=== PATIENT | male | born 1985 ===

== ENCOUNTER 2016-12-25 22:06 | Inpatient (IN) | payer BC ==
[2016-12-25 23:06] LABS: ABG ALLEN TEST YES; ARTERIAL BLOOD GAS HCO3 21.1 mmol/L (21-28); ARTERIAL BLOOD GAS MODE ROOM AIR; ARTERIAL BLOOD GAS PH 7.37 (7.35-7.45); ARTERIAL BLOOD GAS PO2 71 mm/Hg (80-100)
[2016-12-25 23:25] LABS: BASO % 0.1 % (0.0-2.0); EOS % 0.1 % (0.0-4.0); HEMATOCRIT 31.3 % (35.0-51.0); LYMPH # 1.4 K/uL (1.0-4.3); MEAN CORPUSCULAR HEMOGLOBIN 31.5 pg (27.0-31.0); MEAN CORPUSCULAR HGB CONC 32.5 g/dL (33.0-37.0); MEAN PLATELET VOLUME 8.4 fl (7.2-11.7); MONO # 0.9 K/uL (0.0-0.8); MONO % 9.9 % (0.0-10.0); NEUT % 74.9 % (50.0-75.0); NRBC % 0.1 % (0.0-0.0); RED CELL DISTRIBUTION WIDTH 14.9 % (11.5-14.5); WHITE BLOOD COUNT 9.3 K/uL (4.8-10.8)
[2016-12-25] MEDS ORDERED: Piperacillin/Tazobact 3.375 GM in Sodium Chloride 0.9% 100 ML IVPB STA (23:28)
--- NOTE | 2016-12-25 23:33 | ED PDOC ---
HPI: SOB/CHF/COPD Time Seen by Provider: 12/25/16 22:22 Chief Complaint (Nursing): Shortness Of Breath Chief Complaint (Provider): Right leg swelling/SOB History Per: Patient History/Exam Limitations: no limitations Onset/Duration Of Symptoms: Days (2) Current Symptoms Are (Timing): Still Present Additional Complaint(s): Newton Biggs is a 31 y/o male, with a past medical history of Atrial- Fibrillation, HIV (positive; viral load undetectable), hypertension, hypothyroidism, and gastritis, presenting to the ER with right leg swelling x2 days. Patient reports swelling has exacerbated since onset and is associated with erythema localized to the inferior area of the leg. Describes the sensation as "burning". Patient notes that his leg swelling is generally persistent but today has been worse than usual, prompting a visit to the ED. Reports associated symptoms include SOB (worse upon exertion), malaise, fatigue , subjective fever, and chills. Denies any trauma to the inflicted area. PMD- Matti Welch Past Medical History Reviewed: Historical Data, Nursing Documentation, Vital Signs Vital Signs: Last Vital Signs Temp 98.2 F 12/26/16 12:20 Pulse 89 12/26/16 12:20 Resp 18 12/26/16 12:20 BP 99/61 L 12/26/16 12:20 Pulse Ox 97 12/26/16 12:20 - Medical History PMH: CAD, Cardia Arrhythmia, HIV (2005. viral load undetectable. does not know CD4 count. compliant with meds), HTN, Hypercholesterolemia, Hypothyroidism - Surgical History Surgical History: Pacemaker Other surgeries: heart transplant in 2007 for severe A-fib and heart failure - Family History Family History: States: Hypertension (father) - Social History Current smoker - smoking cessation education provided: No Alcohol: None Drugs: Denies - Immunization History Hx Influenza Vaccination: Yes (11/07/15) Hx Pneumococcal Vaccination: Yes (11/07/15) - Home Medications Home Medications: Ambulatory Orders Medication Instructions Recorded Atorvastatin [Lipitor] 20 mg PO HS 07/29/14 Furosemide [Lasix] 40 mg PO DAILY 07/29/14 Lansoprazole 30 mg PO DAILY 07/29/14 Levothyroxine [Synthroid] 0.0375 mg PO DAILY 07/29/14 Tacrolimus [Prograf] 1 mg PO BID 07/29/14 predniSONE 5 mg PO DAILY 07/29/14 Allopurinol [Zyloprim] 200 mg PO DAILY 11/15/15 Carvedilol [Coreg] 25 mg PO BID 11/15/15 Dolutegravir Sodium [Tivicay] 50 mg PO DAILY 11/15/15 Lamivudine [Epivir] 300 mg PO DAILY 11/15/15 Mycophenolate Mofetil [Cellcept] 1,000 mg PO BID 11/15/15 Rilpivirine HCl [Edurant] 25 mg PO DAILY 11/15/15 Sulfamethoxazole/Trimethoprim 1 mg PO MWF 11/15/15 [Bactrim DS Tab] - Allergies Allergies/Adverse Reactions: Allergies Allergy/AdvReac Type Severity Reaction Status Date / Time ibuprofen Allergy RASH Verified 11/14/15 23:21 Review of Systems ROS Statement: Except As Marked, All Systems Reviewed And Found Negative Constitutional: Positive for: Fever (subjective ), Chills, Malaise, Other ( fatigue ) Respiratory: Positive for: SOB with Exertion Musculoskeletal: Positive for: Other (leg swelling ) Physical Exam - Reviewed Nursing Documentation Reviewed: Yes Vital Signs Reviewed: Yes - Physical Exam Appears: Positive for: Non-toxic, In Acute Distress (mild) Head Exam: Positive for: ATRAUMATIC, NORMOCEPHALIC Skin: Positive for: Normal Color, Warm (febrile), Dry Eye Exam: Positive for: Normal appearance, EOMI, PERRL ENT: Positive for: Normal ENT Inspection, Pharynx Is (clear), TM Is/Are (normal ), Other (moist mucuous membranes ). Negative for: Pharyngeal Erythema, Tonsillar Exudate, Tonsillar Swelling Neck: Positive for: Normal (no signs of meningismus ), Painless ROM, Supple Cardiovascular/Chest: Positive for: Tachycardia (w/ regular rhythm ) Respiratory: Positive for: Normal Breath Sounds. Negative for: Wheezing, Respiratory Distress Gastrointestinal/Abdominal: Positive for: Normal Exam, Soft. Negative for: Tenderness, Mass, Distended, Guarding, Rebound Extremity: Positive for: Normal ROM, Swelling (bilat lower leg pitting edema, right side greather than left), Other (Right side is erythematous and warm with induration from the ankle extending prison up the lower leg with mild TTP, ). Negative for: Deformity Lymphatic: Positive for: Normal Exam. Negative for: Adenopathy (non-palpable lymphadenopathy ) Neurologic/Psych: Positive for: Alert, Oriented (x3). Negative for: Motor/ Sensory Deficits - Laboratory Results Result Diagrams: 12/26/16 06:52 12/26/16 06:52 - ECG ECG Rhythm: Positive for: Sinus Tachycardia (@ 122), Right Bundle Branch Block Interpretation Of Abn EKG: low voltage QRS. O2 Sat by Pulse Oximetry: 99 (RA) Pulse Ox Interpretation: Normal Medical Decision Making Medical Decision Makin:22 Initial Impression- Right lower leg cellulitis and edema. Differential dx includes but not limited to Sepsis, CHF, DVT, PE. Initial Plan- * CAT Angio * EKG * BNP * CMP * Lactic Acid * Magnesium * Phosphorus * Troponin * PT * PTT * CXR * Acetaminophen 975 mg PO * Blood Cx * Urine Cx * Urinalysis * US Duplex * Re-assess Documented by Chastity Garcia, acting as a scribe for Kaylen Campbell MD. All medical record entries made by the Scribe were at my direction and personally dictated by me. I have reviewed the chart and agree that the record accurately reflects my personal performance of the history, physical exam, medical decision making, and the department course for this patient. I have also personally directed, reviewed, and agree with the discharge instructions and disposition. Disposition - Clinical Impression Clinical Impression: Dyspnea - Disposition Disposition: Transfer of Care Disposition Time: 00:00 Condition: STABLE Patient Signed Over To: Dayton Nelson Handoff Comments: P'ing ER workup, reassessment and final ER disposition
[2016-12-25 23:41] LABS: ALKALINE PHOSPHATASE 81 U/L (38-126); ALT/SGPT 32 U/L (21-72); AST/SGOT 24 U/L (17-59); BILIRUBIN,TOTAL 0.7 mg/dl (0.2-1.3); BLOOD UREA NITROGEN 26 mg/dl (9-20); CALCIUM 8.4 mg/dL (8.4-10.2); CARBON DIOXIDE 22 mmol/L (22-30); CHLORIDE 108 mmol/L (98-107); GFR AFRICAN-AMERICAN > 60; GLUCOSE,RANDOM 101 mg/dL (75-110); MAGNESIUM 1.6 MG/DL (1.6-2.3); PHOSPHOROUS 2.5 mg/dl (2.5-4.5); SODIUM 140 mmol/l (132-148); TOTAL PROTEIN 7.1 G/DL (6.3-8.2)
[2016-12-25 23:44] LABS: PARTIAL THROMBOPLASTIN TIME 29.5 SECONDS (23.3-32.5)
[2016-12-25 23:52] LABS: POTASSIUM 5.2 MMOL/L (3.6-5.0)
[2016-12-26] MEDS ORDERED: Sodium Chloride 0.9% 50 ML IV ONE (00:15)
[2016-12-26] MEDS ORDERED: Iodixanol 320 MG/ML 100 ML BOTTLE IV ONE (00:15)
--- NOTE | 2016-12-26 00:31 | ED PDOC ---
- Laboratory Results Result Diagrams: 12/28/16 05:40 12/28/16 05:40 - ECG O2 Sat by Pulse Oximetry: 99 (RA) Medical Decision Making Medical Decision Makin:00 Pt signed out to me by Dr. Adrian MD. Pending Ultrasound and CT. 01:38 US DUPLEX LOWER FINDINGS: Deep veins: Unremarkable. No DVT in the common femoral, femoral or popliteal veins. Superficial veins: Unremarkable. No thrombus in the visualized greater saphenous vein. Soft tissues: No acute findings. No popliteal cyst. IMPRESSION: Normal right lower extremity duplex venous ultrasound. Pt will be placed under observation for CHF. Case d/w Dr Greene Documented by Chastity Garcia, acting as a scribe for Dayton Nelson MD. All medical record entries made by the Scribe were at my direction and personally dictated by me. I have reviewed the chart and agree that the record accurately reflects my personal performance of the history, physical exam, medical decision making, and the department course for this patient. I have also personally directed, reviewed, and agree with the discharge instructions and disposition. Disposition - Clinical Impression Clinical Impression: Dyspnea - POA Present On Arrival: None - Disposition Disposition: Routine/Home Disposition Time: 01:45 Condition: STABLE
[2016-12-26 01:03] LABS: RBC URINE 2 /hpf (0-3); URINE BILIRUBIN NEGATIVE (NEGATIVE); URINE BLOOD SMALL (NEGATIVE); URINE COLOR YELLOW (YELLOW); URINE GLUCOSE (UA) NEG (Normal); URINE KETONE NEGATIVE (NEGATIVE); URINE LEUKOCYTE ESTERASE NEG Leu/uL (Negative); URINE PROTEIN NEGATIVE (NEGATIVE); URINE UROBILINOGEN 0.2-1.0 mg/dL (0.2-1.0); WBC URINE < 1 /hpf (0-5)
--- NOTE | 2016-12-26 01:37 | US ---
EXAM: US Duplex Right Lower Extremity Veins. CLINICAL HISTORY: 31 years old, male; Signs and symptoms; Swelling of limb; Lower extremity, right; Additional info: Rll swelling and cellulitis TECHNIQUE: Real-time ultrasound scan of the veins of the right lower extremity with color Doppler flow, spectral waveform analysis and compression. COMPARISON: No relevant prior studies available. FINDINGS: Deep veins: Unremarkable. No DVT in the common femoral, femoral or popliteal veins. Superficial veins: Unremarkable. No thrombus in the visualized greater saphenous vein. Soft tissues: No acute findings. No popliteal cyst. IMPRESSION: Normal right lower extremity duplex venous ultrasound.
[2016-12-26] MEDS ORDERED: Piperacillin/Tazobact 3.375 gm Inj IVPB ONE (02:27)
--- NOTE | 2016-12-26 02:38 | CP.PCM.HP ---
Addendum entered and electronically signed by Jam Greene MD 12/26/16 03:06: eCw chart reviewed. Original Note: History of Present Illness - History of Present Illness History of Present Illness: 31 yo morbidly obese male w/ PMHx of Afib (s/p cardiac transplant), HIV + (CD4 638 [08/2016]; viral load undetectable [03/2016]), HTN, hypothyroidism, presented to the ER with right leg swelling/pain x2 days. Patient states swelling has gotten worse since onset and is associated with erythema localized to the inferior area of the leg. Describes the sensation as "burning" from ankle to proximal portion of calf. Patient states leg swelling is generally persistent but today has been worse than usual, which prompted ED visit. Reports associated symptoms include SOB (worse upon exertion), malaise, and subjective fever. Denies any trauma to the area, headache, palpitations, chest pain, abdominal pain, changes in urinary/bowel habits, n/v. No history of similar symptoms in the past. Patient states works all day on feet. Patient compliant with medications. PMD: Dr. Welch PMHx: Afib (that was uncontrolled and unable to be ablated requiring heart transplant), HIV + (CD4 638 [08/2016]; viral load undetectable [03/2016]), HTN, hypothyroidism, and gastritis Allergies: Ibuprofen and other NSAIDs Meds: As per chart Surgeries: Heart Transplant 2002 Family hx: Father alive with HTN, Mother alive with osteoporosis Social hx: Works at [employer]. Denies tobacco or drug use. Social EtOh consumption ED Course: Vitals notable for fever at 100.9, tachycardia Labs: Notable for Hgb 10.2, WBC 9.3, Plt 113, K 5.2, Lactate negative, Pro BNP 2040 EKG: see scanned report though no acute changes Imaging: CTA negative for acute PE. US negative for DVT on RLE Present on Admission - Present on Admission Any Indicators Present on Admission: No Review of Systems - Review of Systems All systems: reviewed and no additional remarkable complaints except (mentioned in HPI) Past Patient History - Infectious Disease Hx of Infectious Diseases: None - Past Social History Alcohol: None Drugs: Denies - CARDIAC Hx Cardia Arrhythmia: Yes Hx Hypercholesterolemia: Yes Hx Hypertension: Yes Hx Pacemaker: Yes - ENDOCRINE/METABOLIC Hx Hypothyroidism: Yes - HEMATOLOGICAL/ONCOLOGICAL Hx Human Immunodeficiency Virus (HIV): Yes (2005. viral load undetectable. does not know CD4 count. compliant with meds) - PSYCHIATRIC Hx Substance Use: No - SURGICAL HISTORY Hx Surgeries: Yes Hx Open Heart Surgery: Yes (HEART TRANSPLANT 06/2003) - ANESTHESIA Hx Anesthesia: Yes Hx Anesthesia Reactions: No Meds Allergies/Adverse Reactions: Allergies Allergy/AdvReac Type Severity Reaction Status Date / Time ibuprofen Allergy RASH Verified 11/14/15 23:21 Physical Exam - Constitutional Appears: Well, Non-toxic, No Acute Distress Additional comments: morbidly obese - Head Exam Head Exam: ATRAUMATIC, NORMAL INSPECTION, NORMOCEPHALIC - Eye Exam Eye Exam: EOMI, Normal appearance - ENT Exam ENT Exam: Normal Exam - Neck Exam Neck exam: Positive for: Normal Inspection - Respiratory Exam Respiratory Exam: Clear to Auscultation Bilateral, Rales (scant bibasilar rales appreciated), NORMAL BREATHING PATTERN - Cardiovascular Exam Cardiovascular Exam: REGULAR RHYTHM, RRR, +S1, +S2 - GI/Abdominal Exam GI & Abdominal Exam: Normal Bowel Sounds, Soft. absent: Distended, Firm, Tenderness - Extremities Exam Extremities exam: Positive for: pedal pulses present (bilaterally) Additional comments: B/L lower leg pitting edema, R>L Neurovascular intact bilaterally RLE: Erythema, warmth with induration from ankle extending fci up the lower leg with tenderness to palpation - Back Exam Back exam: NORMAL INSPECTION - Neurological Exam Neurological exam: Alert, Oriented x3 - Psychiatric Exam Psychiatric exam: Normal Affect, Normal Mood - Skin Skin Exam: Dry, Intact, Normal Color, Warm Results - Vital Signs Recent Vital Signs: Last Vital Signs Temp 100.9 F H 12/25/16 22:15 Pulse 107 H 12/25/16 22:15 Resp 22 12/25/16 22:15 BP 123/64 12/25/16 22:15 Pulse Ox 99 12/26/16 01:40 - Labs Result Diagrams: 12/25/16 23:21 12/25/16 23:21 Assessment & Plan (1) Cellulitis Status: Acute (2) Cardiomyopathy Status: Acute (3) History of heart transplant Status: Chronic (4) HIV (human immunodeficiency virus infection) Status: Chronic (5) Hypothyroid Status: Chronic (6) Morbid obesity Status: Chronic (7) HTN (hypertension) Status: Acute (8) DVT prophylaxis Status: Acute - Assessment and Plan (Free Text) Assessment: 31 yo morbidly obese male w/ PMHx of Afib (s/p cardiac transplant), HIV + (CD4 638 [08/2016]; viral load undetectable [03/2016]), HTN, hypothyroidism, with right leg swelling/pain x2 days with associated SOB. Found to be in acute heart failure and likely cellulitis of right lower leg. Plan: (1) Cellulitis - Burning pain/warmth/erythema/fever noted - WBC normal though with HIV infection, may not be able to mount leukocytosis - US negative for thrombosis - DDx includes cellulitis vs statis dermatitis - Will treat with Ancef 1g q8h at this time - Follow up blood cx - Monitor for improvement/resolution of symptoms - Monitor vitals (2) Cardiomyopathy - SOB with bilateral leg swelling and elevated probnp - CTA negative for PE - Last Echo 02/23/2016, valvular disease noted with preserved EF - Will obtain repeat echo at this time, follow up results - Lasix 20mg IV x 1 - continue home meds (lasix 40mg PO BID) (3) History of heart transplant - continue home meds (prednisone 5mg daily, Bactrim DS MWF, Prograd 1mg BID) (4) HIV (human immunodeficiency virus infection) - CD4 638 [08/2016]; viral load undetectable [03/2016] - continue home meds (edurant, epivir, tivicay) (5) Hypothyroid - TSH ordered for AM - continue home meds (synthroid 25mcg) (6) Morbid obesity - HgbA1c, Lipid panel ordered for AM follow up (7) HTN - Stable - Continue home meds (Coreg 25mg BID, Lipitor 20mg) (8) DVT prophylaxis - Lovenox 40mg SC daily, notable for mild thrombocytopenia though not necessarily related to heparin products, continue to monitor and adjust accordingly.
[2016-12-26] MEDS: ceFAZolin 1 GM in Sodium Chloride 0.9% 100 ML IVPB SCH ×3 (06:09→17:36)
[2016-12-26 07:01] LABS: BASO % 0.3 % (0.0-2.0); EOS % 0.2 % (0.0-4.0); HEMATOCRIT 29.8 % (35.0-51.0); LYMPH # 1.9 K/uL (1.0-4.3); LYMPH % 17.8 % (20.0-40.0); MEAN CELL VOLUME 97.5 fl (80.0-94.0); MEAN CORPUSCULAR HEMOGLOBIN 31.4 pg (27.0-31.0); MEAN CORPUSCULAR HGB CONC 32.2 g/dL (33.0-37.0); MEAN PLATELET VOLUME 9.4 fl (7.2-11.7); MONO # 1.3 K/uL (0.0-0.8); MONO % 11.7 % (0.0-10.0); NEUT # 7.5 K/uL (1.8-7.0); WHITE BLOOD COUNT 10.7 K/uL (4.8-10.8)
[2016-12-26 07:21] LABS: BLOOD UREA NITROGEN 23 mg/dl (9-20); CALCIUM 8.2 mg/dL (8.4-10.2); CARBON DIOXIDE 19 mmol/L (22-30); CHLORIDE 107 mmol/L (98-107); CHOLESTEROL 102 mg/dL (0-199); GFR AFRICAN-AMERICAN > 60; GLUCOSE,RANDOM 93 mg/dL (75-110); POTASSIUM 4.6 MMOL/L (3.6-5.0); SODIUM 137 mmol/l (132-148)
[2016-12-26] MEDS ORDERED: PREDNISONE 5 MG PO SCH (09:00)
[2016-12-26] MEDS: Levothyroxine 25 MCG TAB PO SCH (10:00)
[2016-12-26] MEDS: Enoxaparin 40 mg Syringe SC SCH (10:00)
--- NOTE | 2016-12-26 11:00 | CT ---
PROCEDURE: CT Chest with contrast (Pulmonary Angiogram) HISTORY: sob, reported prior heart surgery. COMPARISON: None available. TECHNIQUE: Axial computed tomography images were obtained of the chest in the pulmonary arterial phase of enhancement. Coronal and sagittal reformatted images were created and reviewed. Intravenous contrast dose: 100 cc Visipaque 320 Radiation dose: Total exam DLP = 409.54 mGy-cm. FINDINGS: PULMONARY ARTERIES: Limited evaluation of the peripheral pulmonary arteries due to patient's body habitus and poor contrast bolus injection. No evidence of central pulmonary embolus. The main pulmonary artery is mildly to moderately enlarged. AORTA: No acute findings. No thoracic aortic aneurysm. LUNGS: Unremarkable. No nodule, mass or pulmonary consolidation. PLEURAL SPACES: Unremarkable. No effusion or pneuomothorax. HEART: The heart is moderately enlarged. There is a single wire seen extending to the right ventricle. LYMPH NODES: No lymphadenopathy. BONES, CHEST WALL: Post sternotomy changes are seen. OTHER FINDINGS: Unremarkable. IMPRESSION: Limited study. No evidence of central pulmonary embolus. Cardiomegaly. Mildly to moderately enlarged main pulmonary artery suggestive of underlying pulmonary hypertension. No evidence of pleural effusion or pneumothorax. No evidence of acute pulmonary disease. Preliminary report was submitted by [facility].
--- NOTE | 2016-12-26 13:26 | RAD ---
HISTORY: Sepsis Patient COMPARISON: Comparison is made to the previous study dated 09/22/2014 FINDINGS: LUNGS: Prominent lung markings and small opacities especially at the lower lobes are noted. Otherwise no significant interval change in the lungs. PLEURA: No significant pleural effusion identified, no pneumothorax apparent. CARDIOVASCULAR: Cardiomegaly is seen. Left-sided single wire pacemaker or AICD is seen in place. OSSEOUS STRUCTURES: No significant abnormalities. VISUALIZED UPPER ABDOMEN: Normal. OTHER FINDINGS: None. IMPRESSION: Prominent lung markings and small opacities at the lower lobes. Correlate for pulmonary vascular congestion. Cardiomegaly.
[2016-12-26] MEDS ORDERED: Pneumococcal 23-Valent Vaccine IM ONE (14:00)
--- NOTE | 2016-12-26 14:01 | CARD ---
APPROVED REPORT EKG Measurement Heart [id number] <Conclusion> Sinus tachycardia with 1st degree AV block with occasional premature ventricular complexes Low voltage QRS Right bundle branch block Septal infarct, age undetermined Abnormal ECG
[2016-12-27] MEDS: ceFAZolin 1 GM in Sodium Chloride 0.9% 100 ML IVPB SCH ×3 (02:23→17:30)
[2016-12-27] MEDS: Levothyroxine 25 MCG TAB PO SCH (05:59)
--- NOTE | 2016-12-27 08:07 | CP.PCM.PN ---
Subjective - Date & Time of Evaluation Date of Evaluation: 12/27/16 Time of Evaluation: 09:21 - Subjective Subjective: 31 year old male with PMHx of Afib (s/p cardiac transplant), HIV + (CD4 638 [2015]; viral load undetectable [03/2016]), HTN, hypothyroidism, morbid obesity was seen at bedside regarding right lower extremity swelling. Patient denies any acute events overnight. His right lower extremity is still red, and swollen , and he states that it is still painful to the touch. He denies any n/v/f/c/ sob/cp. Objective - Vital Signs/Intake and Output Vital Signs (last 24 hours): Temp Pulse Resp BP Pulse Ox 97.3 F L 90 18 114/73 98 12/27/16 04:57 12/27/16 04:57 12/27/16 04:57 12/27/16 04:57 12/27/16 04:57 - Medications Medications: Current Medications Acetaminophen (Tylenol 325mg Tab) 975 mg PO ONCE PRN PRN Reason: Fever >100.4 F Acetaminophen (Tylenol 325mg Tab) 650 mg PO Q6 PRN PRN Reason: Fever >100.4 F Atorvastatin Calcium (Lipitor) 20 mg PO HS [facility] Last Admin: 12/26/16 21:04 Dose: 20 mg Carvedilol (Coreg) 25 mg PO BID [facility] Last Admin: 12/26/16 16:28 Dose: 25 mg Enoxaparin Sodium (Lovenox) 40 mg SC DAILY [facility] PRN Reason: Protocol Last Admin: 12/26/16 10:00 Dose: 40 mg Furosemide (Lasix) 40 mg PO BID [facility] Last Admin: 12/26/16 16:29 Dose: 40 mg Home Med (Rilpivirine Hcl [Edurant]) 25 mg PO DAILY [facility] Home Med (Patient's Own Medication) 1 unit PO DAILY [facility] Cefazolin Sodium 1 gm/ Sodium (Chloride) 100 mls @ 100 mls/hr IVPB Q8H [facility] Last Admin: 12/27/16 02:23 Dose: 100 mls/hr Lamivudine (Epivir) 300 mg PO DAILY [facility] Levothyroxine Sodium (Synthroid) 25 mcg PO DAILY@0630 [facility] Last Admin: 12/27/16 05:59 Dose: 25 mcg Mycophenolate Mofetil (Cellcept) 1,000 mg PO BID [facility] Last Admin: 12/26/16 21:59 Dose: 1,000 mg Prednisone (Prednisone Tab) 5 mg PO DAILY [facility] Last Admin: 12/26/16 10:00 Dose: Not Given Tacrolimus (Prograf Cap) 1 mg PO BID [facility] Last Admin: 12/26/16 16:29 Dose: 1 mg Trimethoprim/Sulfamethoxazole (Bactrim Ds Tab) 1 tab PO MWF [facility] - Labs Labs: PT 12.0 SECONDS (9.6-11.2) H 12/25/16 23:21 INR 1.15 (0.92-1.08) H 12/25/16 23:21 APTT 29.5 SECONDS (23.3-32.5) 12/25/16 23:21 - Constitutional Appears: Non-toxic, No Acute Distress - Head Exam Head Exam: NORMAL INSPECTION - Eye Exam Eye Exam: EOMI, Normal appearance - Neck Exam Neck Exam: Normal Inspection - Respiratory Exam Respiratory Exam: Clear to Ausculation Bilateral, NORMAL BREATHING PATTERN - Cardiovascular Exam Cardiovascular Exam: REGULAR RHYTHM, +S1, +S2 - GI/Abdominal Exam GI & Abdominal Exam: Soft, Normal Bowel Sounds. absent: Tenderness - Extremities Exam Extremities Exam: Calf Tenderness Additional comments: BL lower extremity edema R>L, with slight increase in temperature, non- blanchable erythema from the medial malleolus proximal to the midcalf, tenderness on compression of calf to the right, no tenderness on calf compression left. DP pulses palpable BL - Back Exam Back Exam: NORMAL INSPECTION - Neurological Exam Neurological Exam: Alert, Awake, Oriented x3 - Psychiatric Exam Psychiatric exam: Normal Affect, Normal Mood - Skin Skin Exam: Intact Assessment and Plan - Assessment and Plan (Free Text) Assessment: 31 yo morbidly obese male w/ PMHx of Afib (s/p cardiac transplant), HIV + (CD4 638 [08/2016]; viral load undetectable [03/2016]), HTN, hypothyroidism, with right leg swelling/pain x2 days with associated SOB. Found to be in acute heart failure and likely cellulitis of right lower leg. Plan: (1) Cellulitis vs DVT - Burning pain/warmth/erythema - Afebrile - WBC normal (10.7) though with HIV infection, may not be able to mount leukocytosis - US negative for thrombosis 12/25/16 - DDx includes cellulitis vs statis dermatitis vs DVT - Will treat with Ancef 1g q8h at this time - Blood cultures 12/25/16- no growth - Monitor for improvement/resolution of symptoms - Monitor vitals - Therapeutic Lovenox 180 mg SC - D-dimer 0.32 (2) Cardiomyopathy - SOB with bilateral leg swelling and elevated probnp - CTA negative for PE - Last Echo 02/23/2016, valvular disease noted with preserved EF - Echo:EF 65-70%, mitral regurgitation is trace to mild, there is trace to mild tricuspid regurgitation - Lasix 20mg IV x 1 - continue home meds (lasix 40mg PO BID) (3) History of heart transplant - continue home meds (prednisone 5mg daily, Bactrim DS MWF, Prograd 1mg BID) (4) HIV (human immunodeficiency virus infection) - CD4 638 [08/2016]; viral load undetectable [03/2016] - continue home meds (edurant, epivir, tivicay) (5) Hypothyroid - TSH ordered for AM - continue home meds (synthroid 25mcg) (6) Morbid obesity - HgbA1c, Lipid panel ordered for AM follow up (7) HTN - Stable - Continue home meds (Coreg 25mg BID, Lipitor 20mg)
[2016-12-27] MEDS: Tmp-Smz 800 mg-160 mg DS Tab PO SCH (08:55)
[2016-12-27] MEDS: Enoxaparin 40 mg Syringe SC SCH (08:58)
[2016-12-27] MEDS: DOLUTEGRAVIR 50 MG PO SCH (08:58)
[2016-12-27] MEDS ORDERED: Enoxaparin 120 mg Syringe SC SCH (10:15)
[2016-12-27] MEDS ORDERED: Enoxaparin 100 mg Syringe SC SCH (10:45)
--- NOTE | 2016-12-27 11:09 | CARD ---
APPROVED REPORT EXAM: Two-dimensional and M-mode echocardiogram with Doppler and color Doppler. Other Information Quality : AverageRhythm : Pacemaker INDICATION Congestive Heart Failure S/P Heart Transplant 2D DIMENSIONS IVSd0.90 (0.7-1.1cm)LVDd5.46 (3.9-5.9cm) PWd0.99 (0.7-1.1cm)IVSs1.32 (0.8-1.2cm) LVDs3.93 (2.5-4.0cm)FS (%) 28.1 % PWs1.07 (0.8-1.2cm) M-Mode DIMENSIONS Left Atrium (MM)8.92 (2.5-4.0cm)IVSd1.01 (0.7-1.1cm) Aortic Root3.04 (2.2-3.7cm)LVDd5.75 (4.0-5.6cm) Aortic Cusp Exc.1.90 (1.5-2.0cm)PWd1.10 (0.7-1.1cm) IVSs1.78 cmFS (%) 48 % LVDs3.00 (2.0-3.8cm)PWs1.52 cm Mitral Valve E/A ratio0.0 TDI E/Lateral E'0.0E/Medial E'0.0 Pulmonary Valve PV Peak Gasgmmmw483.9cm/s Tricuspid Valve TR Peak [id number] [id number] Peak Gr.25mmHg [id number] LEFT VENTRICLE The left ventricle is normal size. There is normal left ventricular wall thickness. The left ventricular function is normal. The left ventricular ejection fraction is within the normal range. The Ejection Fraction is 65-70%. There is normal LV segmental wall motion. The left ventricular diastolic function is normal. No left ventricle thrombus noted on this study. RIGHT VENTRICLE The right ventricle is normal size. There is normal right ventricular wall thickness. The right ventricular systolic function is normal. ATRIA The left atrium size is normal. The right atrium size is normal. The interatrial septum is intact with no evidence for an atrial septal defect. AORTIC VALVE The aortic valve is normal in structure and function. No aortic regurgitation is present. There is no aortic valvular stenosis. There is no aortic valvular vegetation. MITRAL VALVE The mitral valve is normal in structure and function. There is no evidence of mitral valve prolapse. There is no mitral valve stenosis. Mitral regurgitation is trace to mild. TRICUSPID VALVE The tricuspid valve is normal in structure and function. There is trace to mild tricuspid regurgitation. There is no tricuspid valve prolapse or vegetation. There is no tricuspid valve stenosis. PULMONIC VALVE The pulmonary valve is normal in structure and function. There is no pulmonic valvular regurgitation. There is no pulmonic valvular stenosis. GREAT VESSELS The aortic root is normal in size. The IVC is normal in size and collapses >50% with inspiration. PERICARDIAL EFFUSION The pericardium appears normal. There is no pleural effusion. <Conclusion> The left ventricle is normal size. The left ventricular function is normal. The left ventricular ejection fraction is within the normal range. The Ejection Fraction is 65-70%. Mitral regurgitation is trace to mild. There is trace to mild tricuspid regurgitation.
--- NOTE | 2016-12-27 13:53 | CP.PCM.CON ---
History of Present Illness - History of Present Illness History of Present Illness: 31 yo morbidly obese male with right leg swelling/pain x2 days. Patient states swelling has gotten worse since onset and is associated with erythema localized to the inferior area of the leg. Describes the sensation as "burning" from ankle to proximal portion of calf. Patient states leg swelling is generally persistent but today has been worse than usual, which prompted ED visit. Reports associated symptoms include SOB (worse upon exertion), malaise, and subjective fever. Denies any trauma to the area, headache, palpitations, chest pain, abdominal pain, changes in urinary/bowel habits, n/v. No history of similar symptoms in the past. Patient states works all day on feet. Patient compliant with medications. PMHx of Afib (s/p cardiac transplant), HIV + (CD4 638 [08/2016]; viral load undetectable [03/2016]), HTN, hypothyroidism, presented to the ER PMD: Dr. Welch PMHx: Afib (that was uncontrolled and unable to be ablated requiring heart transplant), HIV + (CD4 638 [08/2016]; viral load undetectable [03/2016]), HTN, hypothyroidism, and gastritis Allergies: Ibuprofen and other NSAIDs Meds: As per chart Surgeries: Heart Transplant 2003 Family hx: Father alive with HTN, Mother alive with osteoporosis Social hx: Works at [employer]. Denies tobacco or drug use. Social EtOh consumption Review of Systems - Constitutional Constitutional: As Per HPI - EENT Eyes: absent: As Per HPI, Blind Spots, Blurred Vision, Change in Vision, Decreased Night Vision, Diplopia, Discharge, Dry Eye, Exophthalmos, Floaters, Irritation, Itchy Eyes, Loss of Peripheral Vision, Pain, Photophobia, Requires Corrective Lenses, Sees Flashes, Spots in Vision, Tunnel Vision, Other Visual Disturbances, Loss of Vision, Other Ears: absent: As Per HPI, Decreased Hearing, Ear Discharge, Ear Pain, Tinnitus, Abnormal Hearing, Disequilibrium, Dizziness, Other Nose/Mouth/Throat: absent: As Per HPI, Epistaxis, Nasal Congestion, Nasal Discharge, Nasal Obstruction, Nasal Trauma, Nose Pain, Post Nasal Drip, Sinus Pain, Sinus Pressure, Bleeding Gums, Change in Voice, Dental Pain, Dry Mouth, Dysphagia, Halitosis, Hoarsness, Lip Swelling, Mouth Lesions, Mouth Pain, Odynophagia, Sore Throat, Throat Swelling, Tongue Swelling, Facial Pain, Neck Pain, Neck Mass, Other - Cardiovascular Cardiovascular: As Per HPI - Respiratory Respiratory: As Per HPI, Dyspnea, Dyspnea on Exertion - Gastrointestinal Gastrointestinal: absent: As Per HPI, Abdominal Pain, Belching, Bloating, Change in Bowel Habits, Change in Stool Character, Coffee Ground Emesis, Constipation, Cramping, Diarrhea, Dyspepsia, Dysphagia, Early Satiety, Excessive Flatus, Fecal Incontinence, Heartburn, Hematemesis, Hematochezia, Loose Stools, Melena, Nausea, Odynophagia, Temesmus, Vomiting, Other - Genitourinary Genitourinary: absent: As Per HPI, Change in Urinary Stream, Difficulty Urinating, Dysuria, Flank Pain, Hematuria, Pyuria, Nocturia, Urinary Incontinence, Urinary Frequency, Urinary Hesitance, Urinary Urgency, Voiding Freq/Small Amts, Freq UTI, Hx Renal/Bladder Calculi, Hx /Renal Surgery, Bladder Distension, Other - Musculoskeletal Musculoskeletal: As Per HPI - Integumentary Integumentary: As Per HPI - Neurological Neurological: absent: As Per HPI, Abnormal Gait, Abnormal Hearing, Abnormal Movements, Abnormal Speech, Behavioral Changes, Burning Sensations, Confusion, Convulsions, Disequilibrium, Dizziness, Numbness, Focal Weakness, Frequent Falls , Headaches, Lack of Coordination, Loss of Vision, Memory Loss, Paresthesias, Radicular Pain, Restless Legs, Sensory Deficit, Syncope, Tingling, Tremor, Vertigo, Weakness, Other Visual Disturbances, Other - Psychiatric Psychiatric: absent: As Per HPI, Abnormal Sleep Pattern, Anhedonia, Anxiety, Auditory Hallucinations, Behavioral Changes, Change in Appetite, Change in Libido, Confusion, Depression, Difficulty Concentrating, Hallucinations, Homicidal Ideation, Hopelessness, Irritability, Memory Loss, Mood Swings, Panic Attacks, Paranoia, Suicidal Ideation, Visual Hallucinations, Tactile Hallucinations, Other - Endocrine Endocrine: absent: As Per HPI, Change in Body Appearance, Change in Libido, Cold Intolorance, Deepening of Voice, Excessive Sweating, Fatigue, Flushing, Heat Intolorance, Increase in Ring/Shoe/Hat Size, Palpitations, Polydipsia, Polyphagia, Polyuria, Other - Hematologic/Lymphatic Hematologic: absent: As Per HPI, Easy Bleeding, Easy Bruising, Lymphadenopathy, Other Past Patient History - Infectious Disease Hx of Infectious Diseases: None - Past Social History Alcohol: None Drugs: Denies - CARDIAC Hx Cardia Arrhythmia: Yes Hx Hypercholesterolemia: Yes Hx Hypertension: Yes Hx Pacemaker: Yes - PULMONARY Hx Respiratory Disorders: No - NEUROLOGICAL Hx Neurological Disorder: No - HEENT Hx HEENT Problems: No - RENAL Hx Chronic Kidney Disease: No - ENDOCRINE/METABOLIC Hx Hypothyroidism: Yes - HEMATOLOGICAL/ONCOLOGICAL Hx Human Immunodeficiency Virus (HIV): Yes (2005. viral load undetectable. does not know CD4 count. compliant with meds) - INTEGUMENTARY Hx Dermatological Problems: No - MUSCULOSKELETAL/RHEUMATOLOGICAL Hx Falls: No Hx Gout: Yes Hx Unsteady Gait: Yes - GASTROINTESTINAL Hx Ulcer: Yes (gastric ulcers) - PSYCHIATRIC Hx Psychophysiologic Disorder: No Hx Substance Use: No - SURGICAL HISTORY Hx Surgeries: Yes Hx Open Heart Surgery: Yes (HEART TRANSPLANT 06/2003) Other/Comment: pacemaker in 2009 and heart transplant in 2002 - ANESTHESIA Hx Anesthesia: Yes Hx Anesthesia Reactions: No Hx Malignant Hyperthermia: No Has any member of the family had a problem w/ anesthesia?: No Meds Allergies/Adverse Reactions: Allergies Allergy/AdvReac Type Severity Reaction Status Date / Time ibuprofen Allergy RASH Verified 11/14/15 23:21 - Medications Medications: Current Medications Acetaminophen (Tylenol 325mg Tab) 975 mg PO ONCE PRN PRN Reason: Fever >100.4 F Acetaminophen (Tylenol 325mg Tab) 650 mg PO Q6 PRN PRN Reason: Fever >100.4 F Atorvastatin Calcium (Lipitor) 20 mg PO HS [facility] Last Admin: 12/26/16 21:04 Dose: 20 mg Carvedilol (Coreg) 25 mg PO BID [facility] Last Admin: 12/27/16 08:55 Dose: 25 mg Enoxaparin Sodium (Lovenox) 180 mg SC STAT [facility]ENDAL PRN Reason: Protocol Furosemide (Lasix) 40 mg PO BID [facility] Last Admin: 12/27/16 08:56 Dose: 40 mg Home Med (Rilpivirine Hcl [Edurant]) 25 mg PO DAILY [facility] Last Admin: 12/27/16 08:54 Dose: 25 mg Home Med (Patient's Own Medication) 1 unit PO DAILY [facility] Last Admin: 12/27/16 08:58 Dose: 1 unit Cefazolin Sodium 1 gm/ Sodium (Chloride) 100 mls @ 100 mls/hr IVPB Q8H [facility] Last Admin: 12/27/16 10:00 Dose: 100 mls/hr Lamivudine (Epivir) 300 mg PO DAILY [facility] Last Admin: 12/27/16 09:02 Dose: 300 mg Levothyroxine Sodium (Synthroid) 25 mcg PO DAILY@0630 [facility] Last Admin: 12/27/16 05:59 Dose: 25 mcg Mycophenolate Mofetil (Cellcept) 1,000 mg PO BID [facility] Last Admin: 12/27/16 08:55 Dose: 1,000 mg Prednisone (Prednisone Tab) 5 mg PO DAILY [facility] Last Admin: 12/27/16 08:56 Dose: 5 mg Tacrolimus (Prograf Cap) 1 mg PO BID [facility] Last Admin: 12/27/16 08:56 Dose: 1 mg Trimethoprim/Sulfamethoxazole (Bactrim Ds Tab) 1 tab PO MWF [facility] Last Admin: 12/27/16 08:55 Dose: 1 tab Physical Exam - Constitutional Appears: Non-toxic, Chronically Ill - Head Exam Head Exam: NORMOCEPHALIC - Eye Exam Eye Exam: PERRL. absent: Scleral icterus - ENT Exam ENT Exam: Mucous Membranes Dry, Normal External Ear Exam - Neck Exam Neck exam: Negative for: Lymphadenopathy, Thyromegaly - Respiratory Exam Respiratory Exam: Decreased Breath Sounds, Rales, Rhonchi - Cardiovascular Exam Cardiovascular Exam: Tachycardia, REGULAR RHYTHM, +S1, +S2 - GI/Abdominal Exam GI & Abdominal Exam: Diminished Bowel Sounds, Distended, Soft. absent: Guarding , Organomegaly, Rebound, Rigid - Rectal Exam Rectal Exam: Deferred - Exam Exam: NORMAL INSPECTION - Extremities Exam Extremities exam: Positive for: pedal edema, tenderness, pedal pulses present. Negative for: calf tenderness - Back Exam Back exam: absent: CVA tenderness (L), CVA tenderness (R) - Neurological Exam Neurological exam: Alert, CN II-XII Intact, Oriented x3, Reflexes Normal Additional comments: bilat leg swelling/ redness - Psychiatric Exam Psychiatric exam: Normal Mood - Skin Skin Exam: Dry Results - Vital Signs Recent Vital Signs: Last Vital Signs Temp 98.2 F 12/27/16 12:02 Pulse 81 12/27/16 12:02 Resp 18 12/27/16 12:02 BP 105/72 12/27/16 12:02 Pulse Ox 96 12/27/16 12:02 - Labs Result Diagrams: 12/26/16 06:52 12/26/16 06:52 Labs: Laboratory Results - last 24 hr 12/27/16 11:40 D-Dimer, Quantitative 0.32 Assessment & Plan (1) Cardiomyopathy Status: Acute (2) Cellulitis Status: Acute (3) DVT prophylaxis Status: Acute (4) HTN (hypertension) Status: Acute (5) HIV (human immunodeficiency virus infection) Status: Chronic (6) History of heart transplant Status: Chronic (7) Hypothyroid Status: Chronic - Assessment and Plan (Free Text) Assessment: afebrile with neg cultures thus far if no improvement consider adding coverage for MRSA
[2016-12-27] MEDS ORDERED: Enoxaparin 30 mg Syringe SC ONE (20:30)
[2016-12-27] MEDS ORDERED: Enoxaparin 150 mg Syringe SC ONE (21:00)
[2016-12-28] MEDS: ceFAZolin 1 GM in Sodium Chloride 0.9% 100 ML IVPB SCH ×3 (01:34→17:37)
[2016-12-28] MEDS: Levothyroxine 25 MCG TAB PO SCH (05:43)
[2016-12-28 07:28] LABS: BLOOD UREA NITROGEN 23 mg/dl (9-20); CALCIUM 8.5 mg/dL (8.4-10.2); CARBON DIOXIDE 22 mmol/L (22-30); CHLORIDE 106 mmol/L (98-107); GFR AFRICAN-AMERICAN > 60; GLUCOSE,RANDOM 84 mg/dL (75-110); POTASSIUM 4.4 MMOL/L (3.6-5.0); SODIUM 139 mmol/l (132-148)
[2016-12-28 07:48] LABS: MEAN CELL VOLUME 97.7 fl (80.0-94.0); MEAN CORPUSCULAR HEMOGLOBIN 31.8 pg (27.0-31.0); MEAN CORPUSCULAR HGB CONC 32.5 g/dL (33.0-37.0); RED CELL DISTRIBUTION WIDTH 15.2 % (11.5-14.5); WHITE BLOOD COUNT 5.4 K/uL (4.8-10.8)
[2016-12-28] MEDS: Enoxaparin 100 mg Syringe SC SCH ×2 (08:42→21:37)
[2016-12-28] MEDS: DOLUTEGRAVIR 50 MG PO SCH (08:48)
--- NOTE | 2016-12-28 10:19 | CP.PCM.PN ---
Subjective - Date & Time of Evaluation Date of Evaluation: 12/28/16 Time of Evaluation: 10:19 - Subjective Subjective: 31 year old male with PMHx of Afib (s/p cardiac transplant), HIV + (CD4 638 [2015]; viral load undetectable [03/2016]), HTN, hypothyroidism, morbid obesity was seen at bedside regarding right lower extremity swelling. Was seen sitting in a chair next to bed. Patient denies any acute events overnight. He feels better today, and has less pain and burning. His right lower extremity is still red, and swollen, and he states that it is still painful to the touch, but less painful than yesterday. He denies any n/v/f/c/sob/cp. Objective - Vital Signs/Intake and Output Vital Signs (last 24 hours): Temp Pulse Resp BP Pulse Ox 98.2 F 89 18 105/70 95 12/28/16 08:05 12/28/16 08:47 12/28/16 08:05 12/28/16 08:47 12/28/16 08:05 - Medications Medications: Current Medications Acetaminophen (Tylenol 325mg Tab) 650 mg PO Q6 PRN PRN Reason: Fever >100.4 F Acetaminophen (Tylenol 325mg Tab) 975 mg PO ONCE PRN PRN Reason: Pain, moderate (4-7) Atorvastatin Calcium (Lipitor) 20 mg PO HS [facility] Last Admin: 12/27/16 23:41 Dose: 20 mg Carvedilol (Coreg) 25 mg PO BID [facility] Last Admin: 12/28/16 08:47 Dose: 25 mg Enoxaparin Sodium (Lovenox) 180 mg SC Q12H [facility] PRN Reason: Protocol Last Admin: 12/28/16 08:42 Dose: 180 mg Furosemide (Lasix) 40 mg PO BID [facility] Last Admin: 12/28/16 08:47 Dose: 40 mg Home Med (Rilpivirine Hcl [Edurant]) 25 mg PO DAILY [facility] Last Admin: 12/28/16 08:48 Dose: 25 mg Home Med (Patient's Own Medication) 1 unit PO DAILY [facility] Last Admin: 12/28/16 08:48 Dose: 1 unit Cefazolin Sodium 1 gm/ Sodium (Chloride) 100 mls @ 100 mls/hr IVPB Q8H [facility] Last Admin: 12/28/16 01:34 Dose: 100 mls/hr Lamivudine (Epivir) 300 mg PO DAILY [facility] Last Admin: 12/28/16 08:46 Dose: 300 mg Levothyroxine Sodium (Synthroid) 25 mcg PO DAILY@0630 [facility] Last Admin: 12/28/16 05:43 Dose: 25 mcg Mycophenolate Mofetil (Cellcept) 1,000 mg PO BID [facility] Last Admin: 12/28/16 08:43 Dose: 1,000 mg Prednisone (Prednisone Tab) 5 mg PO DAILY [facility] Last Admin: 12/28/16 08:49 Dose: 5 mg Tacrolimus (Prograf Cap) 1 mg PO BID [facility] Last Admin: 12/28/16 08:47 Dose: 1 mg Trimethoprim/Sulfamethoxazole (Bactrim Ds Tab) 1 tab PO MWF [facility] Last Admin: 12/27/16 08:55 Dose: 1 tab - Labs Labs: 12/28/16 05:40 12/28/16 05:40 PT 12.0 SECONDS (9.6-11.2) H 12/25/16 23:21 INR 1.15 (0.92-1.08) H 12/25/16 23:21 APTT 29.5 SECONDS (23.3-32.5) 12/25/16 23:21 - Constitutional Appears: Well, Non-toxic, No Acute Distress - Head Exam Head Exam: NORMAL INSPECTION - Eye Exam Eye Exam: EOMI, Normal appearance - Neck Exam Neck Exam: Normal Inspection - Respiratory Exam Respiratory Exam: NORMAL BREATHING PATTERN. absent: Rales, Rhonchi, Wheezes - Cardiovascular Exam Cardiovascular Exam: REGULAR RHYTHM, +S1, +S2 - GI/Abdominal Exam GI & Abdominal Exam: Soft, Normal Bowel Sounds. absent: Tenderness - Extremities Exam Additional comments: BL lower extremity non- pitting edema R>L, with slight increase in temperature to RLE, non-blanchable erythema from the medial malleolus proximal to the midcalf, tenderness on compression of calf to the right, no tenderness on calf compression left. DP pulses palpable BL - Back Exam Back Exam: NORMAL INSPECTION - Neurological Exam Neurological Exam: Alert, Awake, Oriented x3 - Psychiatric Exam Psychiatric exam: Normal Affect, Normal Mood - Skin Skin Exam: Dry, Normal Color, Warm Assessment and Plan - Assessment and Plan (Free Text) Assessment: 31 yo morbidly obese male w/ PMHx of Afib (s/p cardiac transplant), HIV + (CD4 638 [08/2016]; viral load undetectable [03/2016]), HTN, hypothyroidism, with right leg swelling/pain x2 days with associated SOB. Found to be in acute heart failure and cellulitis vs DVT of right lower leg. Plan: (1) Cellulitis vs DVT - Burning pain/warmth/erythema - Afebrile - WBC normal (5.4 today, 12/28/16) though with HIV infection, may not be able to mount leukocytosis - US negative for thrombosis 12/25/16 - DDx includes cellulitis vs statis dermatitis vs DVT - ID consult appreciated - IV abx Ancef 1g q8h - Blood cultures, urine cultures 12/25/16- no growth - Monitor for improvement/resolution of symptoms - Monitor vitals - Therapeutic Lovenox 180 mg SC - D-dimer 0.32 (2) Cardiomyopathy - SOB with bilateral leg swelling and elevated probnp - CTA negative for PE 12/25/16 - Last Echo 02/23/2016, valvular disease noted with preserved EF - Echo:EF 65-70%, mitral regurgitation is trace to mild, there is trace to mild tricuspid regurgitation - continue home meds (lasix 40mg PO BID) (3) History of heart transplant - continue home meds (prednisone 5mg daily, Bactrim DS MWF, Prograd 1mg BID) (4) HIV (human immunodeficiency virus infection) - CD4 638 [08/2016]; viral load undetectable [03/2016] - continue home meds (edurant, epivir, tivicay) (5) Hypothyroid - continue home meds (synthroid 25mcg) (6) Morbid obesity - HgbA1c- 5.8 - Triglycerides, total cholesterol, LDL- WNL - HDL- 28 (7) HTN - Stable - Continue home meds (Coreg 25mg BID, Lipitor 20mg)
[2016-12-29] MEDS: ceFAZolin 1 GM in Sodium Chloride 0.9% 100 ML IVPB SCH ×3 (02:10→17:33)
[2016-12-29] MEDS: Levothyroxine 25 MCG TAB PO SCH (06:55)
[2016-12-29] MEDS: Enoxaparin 100 mg Syringe SC SCH ×2 (10:19→21:37)
[2016-12-29] MEDS: DOLUTEGRAVIR 50 MG PO SCH (10:20)
[2016-12-29] MEDS: Tmp-Smz 800 mg-160 mg DS Tab PO SCH (10:22)
--- NOTE | 2016-12-29 11:13 | CP.PCM.PN ---
<Aria Castaneda - Last Filed: 12/29/16 11:38> Subjective - Date & Time of Evaluation Date of Evaluation: 12/29/16 Time of Evaluation: 11:13 - Subjective Subjective: 31 year old male with PMHx of Afib (s/p cardiac transplant), HIV + (CD4 638 [2015]; viral load undetectable [03/2016]), HTN, hypothyroidism, morbid obesity was seen resting comfortably at bedside with Dr. Chong regarding right lower extremity swelling. Patient denies any acute events overnight. He feels better today, and has less pain and burning. His right lower extremity is still red, and swollen, but is much less painful to touch. He denies any n/v/f/c/sob/cp. Objective - Vital Signs/Intake and Output Vital Signs (last 24 hours): Temp Pulse Resp BP Pulse Ox 98.3 F 89 20 128/83 95 12/29/16 08:00 12/29/16 10:22 12/29/16 08:00 12/29/16 10:22 12/29/16 08:00 - Medications Medications: Current Medications Acetaminophen (Tylenol 325mg Tab) 650 mg PO Q6 PRN PRN Reason: Fever >100.4 F Acetaminophen (Tylenol 325mg Tab) 975 mg PO ONCE PRN PRN Reason: Pain, moderate (4-7) Last Admin: 12/28/16 11:28 Dose: 975 mg Atorvastatin Calcium (Lipitor) 20 mg PO HS [facility] Last Admin: 12/28/16 21:19 Dose: 20 mg Carvedilol (Coreg) 25 mg PO BID [facility] Last Admin: 12/29/16 10:22 Dose: 25 mg Enoxaparin Sodium (Lovenox) 180 mg SC Q12H [facility] PRN Reason: Protocol Last Admin: 12/29/16 10:19 Dose: 180 mg Furosemide (Lasix) 40 mg PO BID [facility] Last Admin: 12/29/16 10:21 Dose: 40 mg Home Med (Rilpivirine Hcl [Edurant]) 25 mg PO DAILY [facility] Last Admin: 12/29/16 10:23 Dose: 25 mg Home Med (Patient's Own Medication) 1 unit PO DAILY [facility] Last Admin: 12/29/16 10:20 Dose: 1 unit Cefazolin Sodium 1 gm/ Sodium (Chloride) 100 mls @ 100 mls/hr IVPB Q8H [facility] Last Admin: 12/29/16 10:24 Dose: 100 mls/hr Lamivudine (Epivir) 300 mg PO DAILY [facility] Last Admin: 12/29/16 10:20 Dose: 300 mg Levothyroxine Sodium (Synthroid) 25 mcg PO DAILY@0630 [facility] Last Admin: 12/29/16 06:55 Dose: 25 mcg Mycophenolate Mofetil (Cellcept) 1,000 mg PO BID [facility] Last Admin: 12/29/16 10:20 Dose: 1,000 mg Prednisone (Prednisone Tab) 5 mg PO DAILY [facility] Last Admin: 12/29/16 10:21 Dose: 5 mg Tacrolimus (Prograf Cap) 1 mg PO BID [facility] Last Admin: 12/29/16 10:23 Dose: 1 mg Trimethoprim/Sulfamethoxazole (Bactrim Ds Tab) 1 tab PO MWF [facility] Last Admin: 12/29/16 10:22 Dose: 1 tab - Labs Labs: 12/28/16 05:40 12/28/16 05:40 PT 12.0 SECONDS (9.6-11.2) H 12/25/16 23:21 INR 1.15 (0.92-1.08) H 12/25/16 23:21 APTT 29.5 SECONDS (23.3-32.5) 12/25/16 23:21 - Constitutional Appears: Well, Non-toxic, No Acute Distress - Head Exam Head Exam: NORMAL INSPECTION - Eye Exam Eye Exam: Normal appearance Pupil Exam: NORMAL ACCOMODATION - ENT Exam ENT Exam: Mucous Membranes Moist - Neck Exam Neck Exam: Normal Inspection - Respiratory Exam Respiratory Exam: NORMAL BREATHING PATTERN. absent: Rales, Rhonchi, Wheezes - Cardiovascular Exam Cardiovascular Exam: REGULAR RHYTHM, +S1, +S2 - GI/Abdominal Exam GI & Abdominal Exam: Soft, Normal Bowel Sounds. absent: Tenderness - Back Exam Back Exam: NORMAL INSPECTION Additional comments: BL lower extremity non- pitting edema R>L, with slight increase in temperature to RLE, non-blanchable erythema from the medial malleolus proximal to the midcalf. No tenderness on compression to calf BL. DP pulses palpable BL - Neurological Exam Neurological Exam: Alert, Awake, Oriented x3 - Psychiatric Exam Psychiatric exam: Normal Affect, Normal Mood - Skin Skin Exam: Dry, Intact, Warm Assessment and Plan - Assessment and Plan (Free Text) Assessment: 31 yo morbidly obese male w/ PMHx of Afib (s/p cardiac transplant), HIV + (CD4 638 [08/2016]; viral load undetectable [03/2016]), HTN, hypothyroidism, with right leg swelling/pain, cellulitis vs DVT of right lower leg. Plan: 1. Cellulitis vs DVT - RLE duplex US ordered for today - Burning pain/warmth/erythema - Afebrile - WBC normal (5.4, 12/28/16) though with HIV infection, may not be able to mount leukocytosis - US negative for thrombosis 12/25/16 - ID consult appreciated - IV abx Ancef 1g q8h - Therapeutic Lovenox 180 mg SC - Blood cultures, urine cultures 12/25/16- no growth - Monitor for improvement/resolution of symptoms - Monitor vitals - D-dimer 0.32 (12/28/16) 2. Cardiomyopathy - SOB with bilateral leg swelling and elevated probnp - CTA negative for PE 12/25/16 - Last Echo 02/23/2016, valvular disease noted with preserved EF - Echo:EF 65-70%, mitral regurgitation is trace to mild, there is trace to mild tricuspid regurgitation - continue home meds (lasix 40mg PO BID) 3. History of heart transplant - continue home meds (prednisone 5mg daily, Bactrim DS MWF, Prograd 1mg BID) 4. HIV (human immunodeficiency virus infection) - CD4 638 [08/2016]; viral load undetectable [03/2016] - continue home meds (edurant, epivir, tivicay) 5. Hypothyroid - continue home meds (synthroid 25mcg) 6. Morbid obesity - HgbA1c- 5.8 - Triglycerides, total cholesterol, LDL- WNL - HDL- 28 7. HTN - Stable - Continue home meds (Coreg 25mg BID, Lipitor 20mg) <Kina Chong - Last Filed: 12/29/16 13:21> Subjective - Date & Time of Evaluation Date of Evaluation: 12/29/16 Objective - Vital Signs/Intake and Output Vital Signs (last 24 hours): Temp Pulse Resp BP Pulse Ox 98.3 F 89 20 128/83 95 12/29/16 08:00 12/29/16 10:22 12/29/16 08:00 12/29/16 10:22 12/29/16 08:00 - Medications Medications: Current Medications Acetaminophen (Tylenol 325mg Tab) 650 mg PO Q6 PRN PRN Reason: Fever >100.4 F Acetaminophen (Tylenol 325mg Tab) 975 mg PO ONCE PRN PRN Reason: Pain, moderate (4-7) Last Admin: 12/28/16 11:28 Dose: 975 mg Atorvastatin Calcium (Lipitor) 20 mg PO HS [facility] Last Admin: 12/28/16 21:19 Dose: 20 mg Carvedilol (Coreg) 25 mg PO BID [facility] Last Admin: 12/29/16 10:22 Dose: 25 mg Enoxaparin Sodium (Lovenox) 180 mg SC Q12H [facility] PRN Reason: Protocol Last Admin: 12/29/16 10:19 Dose: 180 mg Furosemide (Lasix) 40 mg PO BID [facility] Last Admin: 12/29/16 10:21 Dose: 40 mg Home Med (Rilpivirine Hcl [Edurant]) 25 mg PO DAILY [facility] Last Admin: 12/29/16 10:23 Dose: 25 mg Home Med (Patient's Own Medication) 1 unit PO DAILY [facility] Last Admin: 12/29/16 10:20 Dose: 1 unit Cefazolin Sodium 1 gm/ Sodium (Chloride) 100 mls @ 100 mls/hr IVPB Q8H [facility] Last Admin: 12/29/16 10:24 Dose: 100 mls/hr Lamivudine (Epivir) 300 mg PO DAILY [facility] Last Admin: 12/29/16 10:20 Dose: 300 mg Levothyroxine Sodium (Synthroid) 25 mcg PO DAILY@0630 [facility] Last Admin: 12/29/16 06:55 Dose: 25 mcg Mycophenolate Mofetil (Cellcept) 1,000 mg PO BID [facility] Last Admin: 12/29/16 10:20 Dose: 1,000 mg Prednisone (Prednisone Tab) 5 mg PO DAILY [facility] Last Admin: 12/29/16 10:21 Dose: 5 mg Tacrolimus (Prograf Cap) 1 mg PO BID [facility] Last Admin: 12/29/16 10:23 Dose: 1 mg Trimethoprim/Sulfamethoxazole (Bactrim Ds Tab) 1 tab PO MWF [facility] Last Admin: 12/29/16 10:22 Dose: 1 tab - Labs Labs: 12/28/16 05:40 12/28/16 05:40 PT 12.0 SECONDS (9.6-11.2) H 12/25/16 23:21 INR 1.15 (0.92-1.08) H 12/25/16 23:21 APTT 29.5 SECONDS (23.3-32.5) 12/25/16 23:21 - Skin Additional comments: Attending note ATTESTATION Chart reviewed. Patient seen and examined. Case discussed with resident. Agree with plan. Repeat venous doppler today to r/o DVT. Continue antibiotics - patient is improving.
--- NOTE | 2016-12-29 14:11 | CP.PCM.PN ---
Subjective - Date & Time of Evaluation Date of Evaluation: 12/29/16 Time of Evaluation: 08:00 - Subjective Subjective: lower extrem still swollen /red Objective - Vital Signs/Intake and Output Vital Signs (last 24 hours): Temp Pulse Resp BP Pulse Ox 98.3 F 89 20 128/83 95 12/29/16 08:00 12/29/16 10:22 12/29/16 08:00 12/29/16 10:22 12/29/16 08:00 - Medications Medications: Current Medications Acetaminophen (Tylenol 325mg Tab) 650 mg PO Q6 PRN PRN Reason: Fever >100.4 F Acetaminophen (Tylenol 325mg Tab) 975 mg PO ONCE PRN PRN Reason: Pain, moderate (4-7) Last Admin: 12/28/16 11:28 Dose: 975 mg Atorvastatin Calcium (Lipitor) 20 mg PO HS [facility] Last Admin: 12/28/16 21:19 Dose: 20 mg Carvedilol (Coreg) 25 mg PO BID [facility] Last Admin: 12/29/16 10:22 Dose: 25 mg Enoxaparin Sodium (Lovenox) 180 mg SC Q12H [facility] PRN Reason: Protocol Last Admin: 12/29/16 10:19 Dose: 180 mg Furosemide (Lasix) 40 mg PO BID [facility] Last Admin: 12/29/16 10:21 Dose: 40 mg Home Med (Rilpivirine Hcl [Edurant]) 25 mg PO DAILY [facility] Last Admin: 12/29/16 10:23 Dose: 25 mg Home Med (Patient's Own Medication) 1 unit PO DAILY [facility] Last Admin: 12/29/16 10:20 Dose: 1 unit Cefazolin Sodium 1 gm/ Sodium (Chloride) 100 mls @ 100 mls/hr IVPB Q8H [facility] Last Admin: 12/29/16 10:24 Dose: 100 mls/hr Lamivudine (Epivir) 300 mg PO DAILY [facility] Last Admin: 12/29/16 10:20 Dose: 300 mg Levothyroxine Sodium (Synthroid) 25 mcg PO DAILY@0630 [facility] Last Admin: 12/29/16 06:55 Dose: 25 mcg Mycophenolate Mofetil (Cellcept) 1,000 mg PO BID [facility] Last Admin: 12/29/16 10:20 Dose: 1,000 mg Prednisone (Prednisone Tab) 5 mg PO DAILY [facility] Last Admin: 12/29/16 10:21 Dose: 5 mg Tacrolimus (Prograf Cap) 1 mg PO BID [facility] Last Admin: 12/29/16 10:23 Dose: 1 mg Trimethoprim/Sulfamethoxazole (Bactrim Ds Tab) 1 tab PO MWF [facility] Last Admin: 12/29/16 10:22 Dose: 1 tab - Labs Labs: 12/28/16 05:40 12/28/16 05:40 PT 12.0 SECONDS (9.6-11.2) H 12/25/16 23:21 INR 1.15 (0.92-1.08) H 12/25/16 23:21 APTT 29.5 SECONDS (23.3-32.5) 12/25/16 23:21 - Constitutional Appears: Non-toxic, Chronically Ill - Head Exam Head Exam: NORMOCEPHALIC - Eye Exam Eye Exam: absent: Scleral icterus - ENT Exam ENT Exam: Mucous Membranes Dry - Neck Exam Neck Exam: absent: Lymphadenopathy - Respiratory Exam Respiratory Exam: Decreased Breath Sounds - Cardiovascular Exam Cardiovascular Exam: REGULAR RHYTHM - GI/Abdominal Exam GI & Abdominal Exam: Distended, Soft Assessment and Plan (1) Cardiomyopathy Status: Acute (2) Cellulitis Status: Acute (3) DVT prophylaxis Status: Acute (4) HTN (hypertension) Status: Acute (5) HIV (human immunodeficiency virus infection) Status: Chronic (6) History of heart transplant Status: Chronic (7) Hypothyroid Status: Chronic
[2016-12-30] MEDS: ceFAZolin 1 GM in Sodium Chloride 0.9% 100 ML IVPB SCH ×2 (02:08→10:39)
[2016-12-30 05:44] VITALS: PULSE 84
[2016-12-30] MEDS: Levothyroxine 25 MCG TAB PO SCH (06:18)
--- NOTE | 2016-12-30 08:43 | US ---
PROCEDURE: Right lower extremity venous duplex Doppler. HISTORY: rule out DVT COMPARISON: None available. TECHNIQUE: Common femoral, superficial femoral, popliteal and posterior tibial veins were evaluated. Flow was assessed with color Doppler, compressibility, assessment of phasic flow and augmentation response. FINDINGS: COMMON FEMORAL VEIN: Unremarkable. SUPERFICIAL FEMORAL VEIN: Unremarkable. POPLITEAL VEIN: Unremarkable. POSTERIOR TIBIAL VEIN: Unremarkable. OTHER FINDINGS: None. IMPRESSION: No evidence of deep venous thrombosis in the right lower extremity.
[2016-12-30] MEDS: Enoxaparin 100 mg Syringe SC SCH (09:27)
[2016-12-30] MEDS: DOLUTEGRAVIR 50 MG PO SCH (09:28)
[2016-12-30 12:18] VITALS: BP 111/75; RESP 18; TEMP 98.2
--- NOTE | 2017-01-01 07:40 | CP.PCM.DIS ---
<Andrey Bateman - Last Filed: 01/01/17 16:01> Provider - Provider Date of Admission: 12/26/16 22:17 Attending physician: Hawa Edward MD Time Spent in preparation of Discharge (in minutes): 35 Hospital Course - Lab Results Lab Results: Most Recent Lab Values WBC 5.4 K/uL (4.8-10.8) 12/28/16 05:40 RBC 2.97 Mil/uL (4.40-5.90) L 12/28/16 05:40 Hgb 9.4 g/dL (12.0-18.0) L 12/28/16 05:40 Hct 29.0 % (35.0-51.0) L 12/28/16 05:40 MCV 97.7 fl (80.0-94.0) H 12/28/16 05:40 MCH 31.8 pg (27.0-31.0) H 12/28/16 05:40 MCHC 32.5 g/dL (33.0-37.0) L 12/28/16 05:40 RDW 15.2 % (11.5-14.5) H 12/28/16 05:40 Plt Count 113 K/uL (130-400) L 12/28/16 05:40 MPV 9.4 fl (7.2-11.7) 12/26/16 06:52 Neut % (Auto) 70.0 % (50.0-75.0) 12/26/16 06:52 Lymph % (Auto) 17.8 % (20.0-40.0) L 12/26/16 06:52 [place] % (Auto) 11.7 % (0.0-10.0) H 12/26/16 06:52 Eos % (Auto) 0.2 % (0.0-4.0) 12/26/16 06:52 Baso % (Auto) 0.3 % (0.0-2.0) 12/26/16 06:52 Neut # 7.5 K/uL (1.8-7.0) H 12/26/16 06:52 Lymph # 1.9 K/uL (1.0-4.3) 12/26/16 06:52 [place] # 1.3 K/uL (0.0-0.8) H 12/26/16 06:52 Eos # 0.0 K/uL (0.0-0.7) 12/26/16 06:52 Baso # 0.0 K/uL (0.0-0.2) 12/26/16 06:52 PT 12.0 SECONDS (9.6-11.2) H 12/25/16 23:21 INR 1.15 (0.92-1.08) H 12/25/16 23:21 APTT 29.5 SECONDS (23.3-32.5) 12/25/16 23:21 D-Dimer, Quantitative 0.32 mg/L FEU (0-0.50) 12/27/16 11:40 pCO2 34 mm/Hg (35-45) L 12/25/16 22:08 pO2 71 mm/Hg (80-100) L 12/25/16 22:08 HCO3 21.1 mmol/L (21-28) 12/25/16 22:08 ABG pH 7.37 (7.35-7.45) 12/25/16 22:08 ABG Total CO2 20.7 mmol/L (22-28) L 12/25/16 22:08 ABG O2 Saturation 99.8 % (95-98) H 12/25/16 22:08 ABG Base Excess -4.8 mmol/L (-2.0-3.0) L 12/25/16 22:08 Mohinder Test Yes 12/25/16 22:08 ABG Potassium 4.8 mmol/L (3.6-5.2) 12/25/16 22:08 A-a O2 Difference 36.0 mm/Hg 12/25/16 22:08 Sodium 132.0 mmol/L (132-148) 12/25/16 22:08 Chloride 113.0 mmol/L (98-107) H 12/25/16 22:08 Glucose 106 mg/dL (75-110) 12/25/16 22:08 Lactate 0.5 mmol/L (0.7-2.1) L 12/25/16 22:08 Vent Mode Room air 12/25/16 22:08 FiO2 21.0 % 12/25/16 22:08 Sodium 139 mmol/l (132-148) 12/28/16 05:40 Potassium 4.4 MMOL/L (3.6-5.0) 12/28/16 05:40 Chloride 106 mmol/L (98-107) 12/28/16 05:40 Carbon Dioxide 22 mmol/L (22-30) 12/28/16 05:40 Anion Gap 17 (10-20) 12/28/16 05:40 BUN 23 mg/dl (9-20) H 12/28/16 05:40 Creatinine 1.2 mg/dL (0.8-1.5) 12/28/16 05:40 Est GFR ( Amer) > 60 12/28/16 05:40 Est GFR (Non-Af Amer) > 60 12/28/16 05:40 Random Glucose 84 mg/dL (75-110) 12/28/16 05:40 Hemoglobin A1c 5.8 % (4.2-6.5) 12/26/16 06:52 Lactic Acid < 0.5 MMOL/L (0.7-2.1) L 12/25/16 23:21 Calcium 8.5 mg/dL (8.4-10.2) 12/28/16 05:40 Phosphorus 2.5 mg/dl (2.5-4.5) 12/25/16 23:21 Magnesium 1.6 MG/DL (1.6-2.3) 12/25/16 23:21 Total Bilirubin 0.7 mg/dl (0.2-1.3) 12/25/16 23:21 AST 24 U/L (17-59) 12/25/16 23:21 ALT 32 U/L (21-72) 12/25/16 23:21 Alkaline Phosphatase 81 U/L (38-126) 12/25/16 23:21 Troponin I 0.0160 ng/mL (0.00-0.120) 12/26/16 06:52 NT-Pro-B Natriuret Pep 2040 pg/ml (0-450) H 12/25/16 23:21 Total Protein 7.1 G/DL (6.3-8.2) 12/25/16 23:21 Albumin 3.6 g/dL (3.5-5.0) 12/25/16 23:21 Globulin 3.5 gm/dL (2.2-3.9) 12/25/16 23:21 Albumin/Globulin Ratio 1.0 (1.0-2.1) 12/25/16 23:21 Triglycerides 73 mg/DL (0-149) 12/26/16 06:52 Cholesterol 102 mg/dL (0-199) 12/26/16 06:52 LDL Cholesterol Direct 53 mg/dL (0-129) 12/26/16 06:52 HDL Cholesterol 28 MG/DL (30-70) L 12/26/16 06:52 Procalcitonin 0.30 NG/ML (0.19-0.49) 12/27/16 15:51 Arterial Blood Potassium 4.8 mmol/L (3.6-5.2) 12/25/16 22:08 Urine Color Yellow (YELLOW) 12/25/16 23:02 Urine Clarity Clear (Clear) 12/25/16 23:02 Urine pH 6.0 (5.0-8.0) 12/25/16 23:02 Ur Specific [place] 1.021 (1.003-1.030) 12/25/16 23:02 Urine Protein Negative mg/dL (NEGATIVE) 12/25/16 23:02 Urine Glucose (UA) Neg mg/dL (Normal) 12/25/16 23:02 Urine Ketones Negative mg/dL (NEGATIVE) 12/25/16 23:02 Urine Blood Small (NEGATIVE) 12/25/16 23:02 Urine Nitrate Negative (NEGATIVE) 12/25/16 23:02 Urine Bilirubin Negative (NEGATIVE) 12/25/16 23:02 Urine Urobilinogen 0.2-1.0 mg/dL (0.2-1.0) 12/25/16 23:02 Ur Leukocyte Esterase Neg Daina/uL (Negative) 12/25/16 23:02 Urine RBC (Auto) 2 /hpf (0-3) 12/25/16 23:02 Urine Microscopic WBC < 1 /hpf (0-5) 12/25/16 23:02 Ur Squamous Epith Cells < 1 /hpf (0-5) 12/25/16 23:02 - Hospital Course Hospital Course: 31 yo morbidly obese male w/ PMHx of Afib (s/p cardiac transplant), HIV + (CD4 638 [08/2016]; viral load undetectable [03/2016]), HTN, hypothyroidism, presented to the ER with right leg swelling/pain x2 days. He described it as burning leg pain located on the RLE that was associated with edema and erythema. He also complained of RODRÍGUEZ, malaise, and a subjective fever. He reported he was compliant with is medications. He had an uneventful hospital stay. During his stay, he had RLE duplex done twice, both of which were negative for DVT. ID consult with Dr. Carvalho was ordered as well. Pt was started on IV ancef as well as Lovenox 180mg SC. Bx, Ux were all negative. CBC was wnl. After the second RLE duplex was negative, combined with improvement of symptoms, he was discharged on Cefadroxil 500mg BID x 7days. He is to follow up with Dr. Merino later this week. Prescriptions: Cefadroxil 500mg BID x7days Discharge Exam - Head Exam Head Exam: NORMOCEPHALIC - Eye Exam Eye Exam: EOMI Pupil Exam: PERRL - Respiratory Exam Respiratory Exam: Clear to PA & Lateral, NORMAL BREATHING PATTERN, UNREMARKABLE. absent: Rales, Rhonchi, Wheezes, Respiratory Distress - Cardiovascular Exam Cardiovascular Exam: REGULAR RHYTHM, RRR, +S1, +S2. absent: Gallop, JVD, Rubs, Systolic Murmur - GI/Abdominal Exam GI & Abdominal Exam: Normal Bowel Sounds, Unremarkable - Extremities Exam Extremities exam: tenderness, pedal pulses present Additional comments: RLQ minor tenderness to palpation (2/10). RLQ with non-pitting edema. No erythema. Discharge Plan - Follow Up Plan Condition: STABLE Disposition: HOME/ ROUTINE Instructions: Cellulitis (DC) Additional Instructions: follow up with Dr. Merino within 1 week any worsening of symptoms report back to ED. <Kina Chong - Last Filed: 01/03/17 09:23> Provider - Provider Date of Admission: 12/26/16 22:17 Attending physician: Hawa Edward MD Hospital Course - Lab Results Lab Results: Most Recent Lab Values WBC 5.4 K/uL (4.8-10.8) 12/28/16 05:40 RBC 2.97 Mil/uL (4.40-5.90) L 12/28/16 05:40 Hgb 9.4 g/dL (12.0-18.0) L 12/28/16 05:40 Hct 29.0 % (35.0-51.0) L 12/28/16 05:40 MCV 97.7 fl (80.0-94.0) H 12/28/16 05:40 MCH 31.8 pg (27.0-31.0) H 12/28/16 05:40 MCHC 32.5 g/dL (33.0-37.0) L 12/28/16 05:40 RDW 15.2 % (11.5-14.5) H 12/28/16 05:40 Plt Count 113 K/uL (130-400) L 12/28/16 05:40 MPV 9.4 fl (7.2-11.7) 12/26/16 06:52 Neut % (Auto) 70.0 % (50.0-75.0) 12/26/16 06:52 Lymph % (Auto) 17.8 % (20.0-40.0) L 12/26/16 06:52 [place] % (Auto) 11.7 % (0.0-10.0) H 12/26/16 06:52 Eos % (Auto) 0.2 % (0.0-4.0) 12/26/16 06:52 Baso % (Auto) 0.3 % (0.0-2.0) 12/26/16 06:52 Neut # 7.5 K/uL (1.8-7.0) H 12/26/16 06:52 Lymph # 1.9 K/uL (1.0-4.3) 12/26/16 06:52 [place] # 1.3 K/uL (0.0-0.8) H 12/26/16 06:52 Eos # 0.0 K/uL (0.0-0.7) 12/26/16 06:52 Baso # 0.0 K/uL (0.0-0.2) 12/26/16 06:52 PT 12.0 SECONDS (9.6-11.2) H 12/25/16 23:21 INR 1.15 (0.92-1.08) H 12/25/16 23:21 APTT 29.5 SECONDS (23.3-32.5) 12/25/16 23:21 D-Dimer, Quantitative 0.32 mg/L FEU (0-0.50) 12/27/16 11:40 pCO2 34 mm/Hg (35-45) L 12/25/16 22:08 pO2 71 mm/Hg (80-100) L 12/25/16 22:08 HCO3 21.1 mmol/L (21-28) 12/25/16 22:08 ABG pH 7.37 (7.35-7.45) 12/25/16 22:08 ABG Total CO2 20.7 mmol/L (22-28) L 12/25/16 22:08 ABG O2 Saturation 99.8 % (95-98) H 12/25/16 22:08 ABG Base Excess -4.8 mmol/L (-2.0-3.0) L 12/25/16 22:08 Mohinder Test Yes 12/25/16 22:08 ABG Potassium 4.8 mmol/L (3.6-5.2) 12/25/16 22:08 A-a O2 Difference 36.0 mm/Hg 12/25/16 22:08 Sodium 132.0 mmol/L (132-148) 12/25/16 22:08 Chloride 113.0 mmol/L (98-107) H 12/25/16 22:08 Glucose 106 mg/dL (75-110) 12/25/16 22:08 Lactate 0.5 mmol/L (0.7-2.1) L 12/25/16 22:08 Vent Mode Room air 12/25/16 22:08 FiO2 21.0 % 12/25/16 22:08 Sodium 139 mmol/l (132-148) 12/28/16 05:40 Potassium 4.4 MMOL/L (3.6-5.0) 12/28/16 05:40 Chloride 106 mmol/L (98-107) 12/28/16 05:40 Carbon Dioxide 22 mmol/L (22-30) 12/28/16 05:40 Anion Gap 17 (10-20) 12/28/16 05:40 BUN 23 mg/dl (9-20) H 12/28/16 05:40 Creatinine 1.2 mg/dL (0.8-1.5) 12/28/16 05:40 Est GFR ( Amer) > 60 12/28/16 05:40 Est GFR (Non-Af Amer) > 60 12/28/16 05:40 Random Glucose 84 mg/dL (75-110) 12/28/16 05:40 Hemoglobin A1c 5.8 % (4.2-6.5) 12/26/16 06:52 Lactic Acid < 0.5 MMOL/L (0.7-2.1) L 12/25/16 23:21 Calcium 8.5 mg/dL (8.4-10.2) 12/28/16 05:40 Phosphorus 2.5 mg/dl (2.5-4.5) 12/25/16 23:21 Magnesium 1.6 MG/DL (1.6-2.3) 12/25/16 23:21 Total Bilirubin 0.7 mg/dl (0.2-1.3) 12/25/16 23:21 AST 24 U/L (17-59) 12/25/16 23:21 ALT 32 U/L (21-72) 12/25/16 23:21 Alkaline Phosphatase 81 U/L (38-126) 12/25/16 23:21 Troponin I 0.0160 ng/mL (0.00-0.120) 12/26/16 06:52 NT-Pro-B Natriuret Pep 2040 pg/ml (0-450) H 12/25/16 23:21 Total Protein 7.1 G/DL (6.3-8.2) 12/25/16 23:21 Albumin 3.6 g/dL (3.5-5.0) 12/25/16 23:21 Globulin 3.5 gm/dL (2.2-3.9) 12/25/16 23:21 Albumin/Globulin Ratio 1.0 (1.0-2.1) 12/25/16 23:21 Triglycerides 73 mg/DL (0-149) 12/26/16 06:52 Cholesterol 102 mg/dL (0-199) 12/26/16 06:52 LDL Cholesterol Direct 53 mg/dL (0-129) 12/26/16 06:52 HDL Cholesterol 28 MG/DL (30-70) L 12/26/16 06:52 Procalcitonin 0.30 NG/ML (0.19-0.49) 12/27/16 15:51 Arterial Blood Potassium 4.8 mmol/L (3.6-5.2) 12/25/16 22:08 Urine Color Yellow (YELLOW) 12/25/16 23:02 Urine Clarity Clear (Clear) 12/25/16 23: Urine pH 6.0 (5.0-8.0) 12/25/16 23:02 Ur Specific [place] 1.021 (1.003-1.030) 12/25/16 23:02 Urine Protein Negative mg/dL (NEGATIVE) 12/25/16 23:02 Urine Glucose (UA) Neg mg/dL (Normal) 12/25/16 23: Urine Ketones Negative mg/dL (NEGATIVE) 12/25/16 23: Urine Blood Small (NEGATIVE) 12/25/16 23: Urine Nitrate Negative (NEGATIVE) 12/25/16 23: Urine Bilirubin Negative (NEGATIVE) 12/25/16 23:02 Urine Urobilinogen 0.2-1.0 mg/dL (0.2-1.0) 12/25/16 23:02 Ur Leukocyte Esterase Neg Daina/uL (Negative) 12/25/16 23:02 Urine RBC (Auto) 2 /hpf (0-3) 12/25/16 23:02 Urine Microscopic WBC < 1 /hpf (0-5) 12/25/16 23:02 Ur Squamous Epith Cells < 1 /hpf (0-5) 12/25/16 23:02 Discharge Exam - Skin Additional comments: ATTESTATION STATEMENT ATTENDING NOTE CASE DISCUSSED WITH RESIDENT. AGREE WITH PLAN. PATIENT SEEN AND EXAMINED. IMPROVED, DECREASED PAIN AND SWELLING. DISCHARGED TO OUTPATIENT FOLLOW UP WITH RX FOR CEHALOSPORIN.
[2017-01-02 20:39] VITALS: O2SAT 99
== END 2016-12-30 15:00 | disposition home or self-care (01) | DRG 603 ==
LOC: H.ER 22:06 → H.ERHOLD 12-26 01:34 → H.TEL 12-26 08:35 → MERGE 12-26 22:17 → OBSVTOIN 12-26 22:17
PROVIDERS: ADMIT Family Medicine Geriatric Medicine; ATTEND Family Medicine Geriatric Medicine
DX: L03.115 Cellulitis of right lower limb (principal); I42.9 Cardiomyopathy, unspecified; Z94.1 Heart transplant status; Z68.43 Body mass index [BMI] 50.0-59.9, adult; I48.91 Unspecified atrial fibrillation; E66.01 Morbid (severe) obesity due to excess calories; Z21 Asymptomatic human immunodeficiency virus [HIV] infection status; E03.9 Hypothyroidism, unspecified; K29.70 Gastritis, unspecified, without bleeding; M10.9 Gout, unspecified; E78.00 Pure hypercholesterolemia, unspecified; Z87.11 Personal history of peptic ulcer disease; R26.81 Unsteadiness on feet; Z95.0 Presence of cardiac pacemaker